=== PATIENT | male | born 1995 | race Caucasian/White ===

== ENCOUNTER 2018-12-22 20:17 | Emergency (ER) | payer SELFPAY ==
[2018-12-22 21:21] VITALS: BP 141/68
--- NOTE | 2018-12-22 21:52 | UC ---
UC General HPI - HPI Summary HPI Summary: sudden sore throat, diffuse bodyache, runny nose and subjective fever/chills. onset this am. - History of Current Complaint Chief Complaint: UCGeneralIllness Stated Complaint: SORE THROAT Time Seen by Provider: 12/22/18 21:46 Hx Obtained From: Patient Timing: Constant Pain Intensity: 10 Associated Signs & Symptoms: Negative: Abdominal Pain, Cough, Diarrhea, SOB, Vomiting - Allergy/Home Medications Allergies/Adverse Reactions: Allergies Allergy/AdvReac Type Severity Reaction Status Date / Time No Known Allergies Allergy Verified 12/22/18 21:17 PMH/Surg Hx/FS Hx/Imm Hx Previously Healthy: Yes - Surgical History Surgical History: None - Family History Known Family History: Positive: Non-Contributory - Social History Occupation: Student Alcohol Use: None Substance Use Type: Marijuana Substance Use Comment - Amount & Last Used: occasional Smoking Status (MU): Never Smoked Tobacco - Immunization History Vaccination Up to Date: Yes Review of Systems All Other Systems Reviewed And Are Negative: Yes Constitutional: Positive: Fever, Fatigue ENT: Positive: Sore Throat, Sinus Congestion Musculoskeletal: Positive: Myalgia Physical Exam Triage Information Reviewed: Yes Appearance: Ill-Appearing - but non toxic Vital Signs: Initial Vital Signs Temp 98.1 F 12/22/18 21:17 Pulse 67 12/22/18 21:17 Resp 16 12/22/18 21:17 BP 141/68 12/22/18 21:17 Pulse Ox 100 12/22/18 21:17 Vital Signs Reviewed: Yes Eyes: Positive: Conjunctiva Clear ENT: Positive: Pharyngeal erythema, Nasal congestion, Nasal drainage - clear, TMs normal, Uvula midline. Negative: Trismus, Muffled voice, Hoarse voice Neck: Positive: Supple, Nontender, No Lymphadenopathy Respiratory: Positive: Lungs clear, Normal breath sounds, No respiratory distress Cardiovascular: Positive: RRR, No Murmur Abdomen Description: Positive: Nontender, No Organomegaly, Soft. Negative: Distended, Guarding Bowel Sounds: Positive: Present Musculoskeletal: Positive: ROM Intact Neurological: Positive: Alert Psychological: Positive: Age Appropriate Behavior Skin Exam: Normal Diagnostics - Laboratory Lab Results: rapid strep=negative. rapid flu=negative. Course/Dx - Course Course Of Treatment: NO HX HTN, BP ILLNESS RELATED. - Differential Dx - Multi-Symptom Differential Diagnoses: Other - non toxic. no concern for pneumonia. rapid strep and flu are negative. - Diagnoses Provider Diagnosis: Viral syndrome Discharge - Sign-Out/Discharge Documenting (check all that apply): Patient Departure All imaging exams completed and their final reports reviewed: No Studies - Discharge Plan Condition: Stable Disposition: HOME Patient Education Materials: Viral Syndrome (ED) Forms: *School Release Referrals: Cyndi Ware PA [Primary Care Provider] - Additional Instructions: FOLLOW UP WITH PRIMARY CARE IF NOT BETTER IN 5-7 DAYS OR SOONER IF WORSE. - Billing Disposition and Condition Condition: STABLE Disposition: Home
[2018-12-22] MEDS ORDERED: Ibuprofen ADULT LIQ* 600 MG/30 ML UDC PO ONE (21:53)
[2018-12-22 22:10] LABS: Influenza A Molecular NEGATIVE (Negative); Influenza B Molecular NEGATIVE (Negative)
== END 2018-12-22 22:29 | disposition home or self-care (01) ==
LOC: UCCORT 20:17
DX: B34.9 Viral infection, unspecified (principal)
CPT/HCPCS: 87651; 99202; A9270-GY; G0463